=== PATIENT | male | born 1965 | race Caucasian/White ===

== ENCOUNTER 2021-01-08 18:00 | Inpatient (IN) ==
[2021-01-08] MEDS ORDERED: ONDANSETRON 4 MG/2 ML VIAL ONE (18:32)
[2021-01-08] MEDS ORDERED: SODIUM CHLORIDE 0.9% 1,000 ML IV STA (18:41)
[2021-01-08] MEDS ORDERED: MORPHINE 2 MG/1 ML SYRINGE IV STA (18:41)
[2021-01-08] MEDS ORDERED: ONDANSETRON 4 MG/2 ML VIAL IV ONE (18:41)
[2021-01-08] MEDS ORDERED: MORPHINE 2 MG/1 ML SYRINGE ONE ×2 (19:13→19:14)
[2021-01-08] MEDS ORDERED: methylPREDNISolone SOD SUC 125 MG/2 ML VIAL IV STA (19:18)
[2021-01-08] MEDS ORDERED: diphenhydrAMINE 50 MG/1 ML VIAL IV STA (19:18)
[2021-01-08] MEDS ORDERED: FAMOTIDINE 20 MG/2 ML VIAL IV STA (19:18)
[2021-01-08 19:20] LABS: Alanine Aminotransferase 78 U/L (16-61); Albumin 3.1 G/DL (3.4-5.0); Alkaline Phosphatase 126 U/L (45-117); Aspartate Amino Transferase 63 U/L (0-37); Blood Urea Nitrogen 11 MG/DL (7-18); Calcium 9.1 MG/DL (8.5-10.1); Carbon Dioxide 21 MMOL/L (21-32); Estimated Glom Filtration Rate 93 ML/MIN; Glucose 137 MG/DL (74-106); Osmolality,Calculated 277.5 MOS/KG (273-304); Potassium 3.6 MMOL/L (3.5-5.1); Sodium 139 MMOL/L (136-145); Total Protein 7.1 G/DL (6.4-8.2)
[2021-01-08 19:31] LABS: Basophils # 0.1 10*3/uL (0.0-0.2); Basophils % 1.1 % (0.0-0.8); Eosinophils # 0.1 10*3/uL (0.0-0.87); Eosinophils % 0.8 % (0.00-10.9); Hematocrit 46.4 VOL% (42.0-52.0); Hemoglobin 14.1 GM/DL (14.0-18.0); Immature Granulocytes % 0.3 %; Immature Granulocytes Absolute 0.02 #; Lymphocytes # 0.6 10*3/uL (1.4-4.0); Lymphocytes % 7.6 % (21.2-54.2); Mean Corpuscular HGB Conc 30.4 GM/DL (32-36); Mean Corpuscular Volume 92.6 FL (87-102); Monocytes % 8.8 % (1.7-12.7); Neutrophils % 81.4 % (38.7-73.9); Platelet Count 196 T/CUMM (130-400); Red Blood Count 5.01 MC/CUMM (3.8-5.5); Red Cell Distribution Width 15.6 % (9.3-17.3)
[2021-01-08] MEDS ORDERED: methylPREDNISolone SOD SUC 125 MG/2 ML VIAL ONE (19:55)
[2021-01-08] MEDS ORDERED: FAMOTIDINE 20 MG/2 ML VIAL IV ONE (19:55)
[2021-01-08] MEDS ORDERED: diphenhydrAMINE 50 MG/1 ML VIAL ONE (19:55)
[2021-01-08 19:59] LABS: INR 1.4; PT Patient Result 15.1 SECS (10.5-12.0); Partial Thromboplastin Time 34.8 SECS (23.8-32.1)
[2021-01-08] MEDS ORDERED: cefTRIAXone 1,000 MG in SODIUM CHLORIDE 0.9% 100 ML IV STA (20:47)
[2021-01-08] MEDS ORDERED: SODIUM CHLOR 0.9% KCL 20 MEQ 20 MEQ/1,000 ML BAG IV SCH (21:30)
[2021-01-08] MEDS ORDERED: cefTRIAXone 1,000 MG VIAL ONE (22:22)
[2021-01-08] MEDS ORDERED: SODIUM CHLORIDE 0.9% 100 ML IV ONE (22:24)
[2021-01-08] MEDS ORDERED: ACETAMINOPHEN 650 MG SUPP RECTAL PRN (22:25)
[2021-01-08] MEDS ORDERED: GLUCAGON 1 MG VIAL IM PRN (22:25)
[2021-01-08] MEDS ORDERED: DEXTROSE 50% 25 GM/50 ML SYRINGE IV PRN (22:25)
[2021-01-08] MEDS ORDERED: PROMETHAZINE INJ 12.5 MG in SODIUM CHLORIDE 0.9% 50 ML IV PRN (22:52)
[2021-01-09] MEDS ORDERED: ALBUTEROL/IPRATROPIUM 3 ML NEB RESP TX ONE (00:13)
[2021-01-09] MEDS: ALBUTEROL/IPRATROPIUM 3 ML NEB RESP TX SCH ×4 (00:20→20:15)
[2021-01-09] MEDS: PANTOPRAZOLE 40 MG VIAL IV SCH ×3 (00:58→21:09)
[2021-01-09] MEDS ORDERED: PANTOPRAZOLE 40 MG VIAL IV ONE (01:03)
[2021-01-09] MEDS ORDERED: MEROPENEM 1,000 MG VIAL ONE (01:04)
[2021-01-09] MEDS ORDERED: SODIUM CHLORIDE 0.9% 100 ML IV ONE (01:04)
[2021-01-09] MEDS: MEROPENEM 500 MG in SODIUM CHLORIDE 0.9% 100 ML IV SCH ×5 (01:05→23:50)
[2021-01-09] MEDS: HYDROmorphone 2 MG/1 ML VIAL IV PRN ×4 (02:13→21:08)
[2021-01-09] MEDS: ONDANSETRON 4 MG/2 ML VIAL IV PRN ×4 (02:13→21:08)
[2021-01-09] MEDS: LACTATED RINGERS 1,000 ML IV SCH ×2 (02:13→17:16)
[2021-01-09 03:02] LABS: Bilirubin,Urine Negative (Negative); Blood, Urine Small mg/dL (Negative); Calcium Oxalate Crystals,Urine Occasional /HPF (Few); Glucose,Urine (UA) Negative (Negative); Ketones,Urine 5 mg/dL (Negative); Mucus,Urine Few /LPF (Occasional); Nitrite,Urine Negative (Negative); Protein,Urine Negative; RBC,Urine 3 /HPF (0-4); Squamous Epithelial Cell,Urine Occasional /HPF (0-10); Urine Appearance CLEAR (Clear); Urine Color Yellow (Yellow); Urine Specific Gravity > 1.060 (1.001-1.035); Urine Urobilinogen < 2.0 EU/DL (0.2-1.0)
[2021-01-09 06:12] LABS: Immature Granulocytes % 0.2 %; Immature Granulocytes Absolute 0.01 #; Lymphocytes # 0.3 10*3/uL (1.4-4.0); Lymphocytes % 5.5 % (21.2-54.2); Red Cell Distribution Width 15.5 % (9.3-17.3); White Blood Count 4.5 T/CUMM (4-12)
[2021-01-09 06:17] LABS: INR 1.4; PT Patient Result 15.4 SECS (10.5-12.0)
[2021-01-09 06:32] LABS: Albumin 2.2 G/DL (3.4-5.0); Bilirubin,Total 1.2 MG/DL (0.20-1.00); Calcium 8.7 MG/DL (8.5-10.1); Osmolality,Calculated 277.7 MOS/KG (273-304); Potassium 4.5 MMOL/L (3.5-5.1); Total Protein 6.1 G/DL (6.4-8.2)
[2021-01-09 06:34] LABS: Basophils % 0.4 % (0.0-0.8); Hematocrit 40.5 VOL% (42.0-52.0); Hemoglobin 12.4 GM/DL (14.0-18.0); Mean Corpuscular HGB Conc 30.6 GM/DL (32-36); Mean Corpuscular Volume 93.5 FL (87-102); Mean Platelet Volume 12.6 FL (9.6-12.0); Monocytes % 3.5 % (1.7-12.7); Neutrophils % 90.4 % (38.7-73.9); Platelet Count 147 T/CUMM (130-400); Red Blood Count 4.33 MC/CUMM (3.8-5.5)
[2021-01-09] MEDS: VANCOMYCIN INJ 1,500 MG in SODIUM CHLORIDE 0.9% 500 ML IV SCH ×2 (09:10→21:09)
[2021-01-09 11:44] LABS: Amylase,Pleural Fluid 8 U/L; Glucose,Pleural Fluid 164 MG/DL; LDH,Pleural Fluid 105 U/L; Total Protein,Pleural Fluid 1.8 G/DL
[2021-01-09 12:02] LABS: Lymphocytes,Pleural Fluid 83 %; Neutrophils,Pleural Fluid 16 %; RBC,Pleural Fluid 3360 T/CUMM
[2021-01-10] MEDS: ALBUTEROL/IPRATROPIUM 3 ML NEB RESP TX SCH ×2 (02:05→07:55)
[2021-01-10] MEDS ORDERED: ALBUMIN 25% 25 GM/100 ML VIAL IV ONE (02:56)
[2021-01-10] MEDS: SODIUM CHLORIDE 0.9% 1,000 ML IV SCH ×2 (03:41→08:21)
[2021-01-10 05:53] LABS: Calcium 7.8 MG/DL (8.5-10.1); Osmolality,Calculated 287.7 MOS/KG (273-304); Potassium 3.7 MMOL/L (3.5-5.1)
[2021-01-10] MEDS: MEROPENEM 500 MG in SODIUM CHLORIDE 0.9% 100 ML IV SCH (06:51)
[2021-01-10] MEDS: LACTATED RINGERS 1,000 ML IV SCH (08:21)
[2021-01-10 08:57] VITALS: BP 92/50
[2021-01-10] MEDS: VANCOMYCIN INJ 1,500 MG in SODIUM CHLORIDE 0.9% 500 ML IV SCH (09:48)
[2021-01-10] MEDS: PANTOPRAZOLE 40 MG VIAL IV SCH (09:49)
[2021-01-13 14:01] LABS: CEA, Pleural Fluid < 0.5 ng/mL
[2021-01-15 10:07] LABS: Adenosine Deaminase Pleural Fl 4 U/L (0-30)
== END 2021-01-10 13:23 | disposition home or self-care (01) | DRG 947 ==
LOC: N.ED 18:00 → N.EDINP 22:25 → N.TELEN 01-09 01:40
PROVIDERS: ADMIT Internal Medicine; ATTEND Internal Medicine

== ENCOUNTER 2021-04-16 17:34 | Inpatient (IN) ==
[2021-04-16] MEDS ORDERED: PANTOPRAZOLE 40 MG VIAL IV STA (19:05)
[2021-04-16] MEDS ORDERED: ONDANSETRON 4 MG/2 ML VIAL IV STA (19:05)
[2021-04-16] MEDS ORDERED: HYDROmorphone 2 MG/1 ML VIAL IV STA (19:05)
[2021-04-16] MEDS ORDERED: SODIUM CHLORIDE 0.9% 500 ML IV STA (19:05)
[2021-04-16 19:34] LABS: Basophils % 0.5 % (0.0-0.8); Eosinophils % 0.5 % (0.00-10.9); Hematocrit 40.2 VOL% (42.0-52.0); Hemoglobin 13.1 GM/DL (14.0-18.0); Immature Granulocytes % 7.4 %; Immature Granulocytes Absolute 0.48 #; Lymphocytes # 0.7 10*3/uL (1.4-4.0); Lymphocytes % 10.6 % (21.2-54.2); Mean Corpuscular HGB Conc 32.6 GM/DL (32-36); Mean Corpuscular Volume 88.2 FL (87-102); Mean Platelet Volume 10.5 FL (9.6-12.0); Monocytes % 16.1 % (1.7-12.7); NRBC # 0.02 10*3/uL; Neutrophils % 64.9 % (38.7-73.9); Platelet Count 146 T/CUMM (130-400); Red Blood Count 4.56 MC/CUMM (3.8-5.5); White Blood Count 6.5 T/CUMM (4-12)
[2021-04-16 19:54] LABS: Alanine Aminotransferase 25 U/L (16-61); Albumin 2.1 G/DL (3.4-5.0); Alkaline Phosphatase 187 U/L (45-117); Amylase 13 U/L (25-115); Aspartate Amino Transferase 39 U/L (0-37); Blood Urea Nitrogen 17 MG/DL (7-18); Calcium 8.9 MG/DL (8.5-10.1); Carbon Dioxide 17 MMOL/L (21-32); Estimated Glom Filtration Rate 73 ML/MIN; Glucose 104 MG/DL (74-106); Potassium 3.6 MMOL/L (3.5-5.1); Sodium 136 MMOL/L (136-145); Total Protein 5.9 G/DL (6.4-8.2)
[2021-04-16] MEDS ORDERED: DOCUSATE SODIUM 100 MG CAPSULE PO PRN (20:07)
[2021-04-16] MEDS ORDERED: diphenhydrAMINE CAP 25 MG CAPSULE PO PRN (20:07)
[2021-04-16] MEDS ORDERED: guaiFENesin/DM ER 600-30 MG TABLET PO PRN (20:07)
[2021-04-16] MEDS ORDERED: hydrALAZINE 20 MG/1 ML VIAL IV PRN (20:07)
[2021-04-16] MEDS ORDERED: ALBUTEROL/IPRATROPIUM 3 ML NEB RESP TX PRN (20:07)
[2021-04-16] MEDS ORDERED: ZALEPLON 5 MG CAPSULE PO PRN (20:07)
[2021-04-16] MEDS ORDERED: GLUCAGON 1 MG VIAL IM PRN ×2 (20:07→23:44)
[2021-04-16] MEDS ORDERED: PROMETHAZINE 25 MG/1 ML VIAL IM PRN (20:07)
[2021-04-16] MEDS ORDERED: MORPHINE 2 MG/1 ML SYRINGE IV PRN (20:07)
[2021-04-16] MEDS ORDERED: ACETAMINOPHEN 325 MG TABLET PO PRN (20:07)
[2021-04-16] MEDS ORDERED: NICOTINE 21 MG/24 HR PATCH TRANSDERM PRN (20:07)
[2021-04-16] MEDS ORDERED: DEXTROSE 10% 250 ML BAG IV PRN (20:11)
[2021-04-16 20:19] LABS: Anisocytosis Slight; Atypical Lymphocytes Few; Band Neutrophils 15 % (0-10); Eosinophils 1 % (0-10); Lymphocytes 20 % (20-55); Metamyelocytes 2 %; Microcytosis Slight; Nucleated Red Blood Cells 1 (0-5); Platelet Estimate Adequate; Schistocytes Few; Segmented Neutrophils 52 % (50-85); Total Cells Counted 100
[2021-04-16 20:20] LABS: Burr Cells Few; Dohle Bodies 2+; Elliptocytes Few; Poikilocytosis 1+; Polychromasia Few; Toxic Granulation 2+
[2021-04-16] MEDS ORDERED: MEROPENEM 2,000 MG in SODIUM CHLORIDE 0.9% 100 ML IV SCH (20:30)
[2021-04-16] MEDS ORDERED: MEROPENEM 500 MG in SODIUM CHLORIDE 0.9% 100 ML IV SCH (21:00)
[2021-04-16] MEDS: HEPARIN 5,000 UNIT/1 ML VIAL SUBCUT SCH (21:26)
[2021-04-16] MEDS ORDERED: VANCOMYCIN INJ 1,000 MG in SODIUM CHLORIDE 0.9% 250 ML IV SCH (22:00)
[2021-04-16] MEDS ORDERED: MORPHINE 4 MG/1 ML VIAL ONE (22:18)
[2021-04-16] MEDS ORDERED: SODIUM CHLORIDE 0.9% 1,000 ML IV ONE (23:42)
[2021-04-16] MEDS ORDERED: PROMETHAZINE 25 MG TABLET PO PRN (23:43)
[2021-04-16] MEDS ORDERED: LORATADINE 10 MG TABLET PO PRN (23:43)
[2021-04-16] MEDS ORDERED: DEXTROSE 50% 25 GM/50 ML VIAL IV PRN (23:44)
[2021-04-17] MEDS: MEROPENEM 500 MG in SODIUM CHLORIDE 0.9% 100 ML IV SCH ×4 (03:57→20:25)
[2021-04-17] MEDS: ONDANSETRON 4 MG/2 ML VIAL IV PRN ×4 (04:06→20:28)
[2021-04-17 05:23] LABS: Basophils % 0.3 % (0.0-0.8); Eosinophils # 0.1 10*3/uL (0.0-0.87); Eosinophils % 0.8 % (0.00-10.9); Hematocrit 36.8 VOL% (42.0-52.0); Hemoglobin 11.9 GM/DL (14.0-18.0); Immature Granulocytes % 8.7 %; Immature Granulocytes Absolute 0.79 #; Lymphocytes # 1.1 10*3/uL (1.4-4.0); Lymphocytes % 11.7 % (21.2-54.2); Mean Corpuscular HGB Conc 32.3 GM/DL (32-36); Mean Corpuscular Volume 88.7 FL (87-102); Mean Platelet Volume 10.8 FL (9.6-12.0); Neutrophils % 64.5 % (38.7-73.9); Platelet Count 128 T/CUMM (130-400); Red Blood Count 4.15 MC/CUMM (3.8-5.5)
[2021-04-17] MEDS: MORPHINE 4 MG/1 ML VIAL IV PRN ×4 (05:43→20:31)
[2021-04-17] MEDS: INSULIN LISPRO 100 UNIT/ML SUBCUT SCH ×3 (05:56→22:39)
[2021-04-17 06:01] LABS: Calcium 8.7 MG/DL (8.5-10.1); Potassium 3.1 MMOL/L (3.5-5.1)
[2021-04-17 06:04] LABS: Acanthocytes 1+; Lymphocytes 23 % (20-55); Platelet Estimate Decreased; Polychromasia 1+; Segmented Neutrophils 63 % (50-85); Total Cells Counted 100
[2021-04-17] MEDS ORDERED: MAGNESIUM SULF RIDER 2 GM/50 ML PREMIX IV ONE (07:30)
[2021-04-17 08:27] LABS: INR 1.4; PT Patient Result 14.8 SECS (10.5-12.0)
[2021-04-17] MEDS: HEPARIN 5,000 UNIT/1 ML VIAL SUBCUT SCH ×2 (08:27→20:32)
[2021-04-17] MEDS: HEPARIN LOCK FLUSH 500 UNIT/5 ML SYRINGE IV SCH ×2 (10:07→20:39)
[2021-04-17 10:30] LABS: Calcium Oxalate Crystals,Urine Occasional /HPF (Few); Hyaline Casts,Urine 12 /LPF (0-3); Mucus,Urine Many /LPF (Occasional); RBC,Urine 2 /HPF (0-4); Squamous Epithelial Cell,Urine Occasional /HPF (0-10); Urine Appearance Clear (Clear); Urine Color Dark Yellow (Yellow)
[2021-04-17 10:31] LABS: Glucose,Urine (UA) Negative (Negative); Protein,Urine 100 MG/DL; Urine Specific Gravity 1.031 (1.001-1.035)
[2021-04-17 10:32] LABS: Bilirubin,Urine Large mg/dL (Negative); Blood, Urine Negative (Negative); Ketones,Urine 2+ mg/dL (Negative); Nitrite,Urine Negative (Negative); Urine Urobilinogen 0.2 EU/DL (<2.0)
[2021-04-17] MEDS ORDERED: SODIUM CHLORIDE 0.9% 1,000 ML IV ONE (11:00)
[2021-04-18] MEDS: INSULIN LISPRO 100 UNIT/ML SUBCUT SCH ×4 (01:22→18:33)
[2021-04-18] MEDS: MORPHINE 4 MG/1 ML VIAL IV PRN ×4 (02:10→22:55)
[2021-04-18] MEDS: ONDANSETRON 4 MG/2 ML VIAL IV PRN ×3 (02:12→22:54)
[2021-04-18] MEDS: MEROPENEM 500 MG in SODIUM CHLORIDE 0.9% 100 ML IV SCH ×4 (03:00→22:55)
[2021-04-18] MEDS: HEPARIN 5,000 UNIT/1 ML VIAL SUBCUT SCH ×2 (09:13→22:54)
[2021-04-18] MEDS: HEPARIN LOCK FLUSH 500 UNIT/5 ML SYRINGE IV SCH (09:14)
[2021-04-18 12:17] LABS: Calcium 9.1 MG/DL (8.5-10.1); Osmolality,Calculated 284.3 MOS/KG (273-304)
[2021-04-18 12:18] LABS: Potassium 2.3 MMOL/L (3.5-5.1)
[2021-04-18] MEDS ORDERED: LOPERAMIDE 2 MG CAPSULE PO PRN (12:23)
[2021-04-18 12:26] LABS: Basophils # 0.1 10*3/uL (0.0-0.2); Basophils % 0.4 % (0.0-0.8); Eosinophils # 0.2 10*3/uL (0.0-0.87); Eosinophils % 0.6 % (0.00-10.9); Hematocrit 38.8 VOL% (42.0-52.0); Hemoglobin 12.7 GM/DL (14.0-18.0); Immature Granulocytes % 11.5 %; Immature Granulocytes Absolute 3.09 #; Lymphocytes # 0.9 10*3/uL (1.4-4.0); Lymphocytes % 3.4 % (21.2-54.2); Mean Corpuscular HGB Conc 32.7 GM/DL (32-36); Mean Corpuscular Volume 88.2 FL (87-102); Mean Platelet Volume 9.9 FL (9.6-12.0); Monocytes % 12.7 % (1.7-12.7); NRBC # 0.05 10*3/uL; Neutrophils % 71.4 % (38.7-73.9); Platelet Count 146 T/CUMM (130-400); Red Cell Distribution Width 25.9 % (9.3-17.3); White Blood Count 26.9 T/CUMM (4-12)
[2021-04-18 12:37] LABS: Band Neutrophils 8 % (0-10); Lymphocytes 2 % (20-55); Metamyelocytes 6 %; Myelocytes 1 %; Segmented Neutrophils 78 % (50-85); Total Cells Counted 100
[2021-04-18 12:38] LABS: Anisocytosis 2+; Dohle Bodies 2+; Hypochromia Slight; Macrocytosis 1+; Microcytosis 2+; Toxic Granulation 2+
[2021-04-18 12:39] LABS: Burr Cells 1+; Elliptocytes Few; Platelet Estimate Adequate; Poikilocytosis 1+; Polychromasia 1+; Schistocytes Slight
[2021-04-18] MEDS: POTASSIUM CHLORIDE 20 MEQ TABLET PO PRN ×4 (12:56→22:54)
[2021-04-18] MEDS ORDERED: LOPERAMIDE 2 MG CAPSULE PO ONE (14:14)
[2021-04-18] MEDS: VANCOMYCIN INJ 1,000 MG in SODIUM CHLORIDE 0.9% 250 ML IV SCH (15:12)
[2021-04-18] MEDS: SPIRONOLACTONE 50 MG TABLET PO SCH (15:12)
[2021-04-18] MEDS: LIPASE/PROTEASE/AMYLASE 4,200 UNITS CAPSULE PO SCH (16:23)
[2021-04-19] MEDS: HEPARIN LOCK FLUSH 500 UNIT/5 ML SYRINGE IV SCH ×3 (00:13→21:14)
[2021-04-19] MEDS: VANCOMYCIN INJ 1,000 MG in SODIUM CHLORIDE 0.9% 250 ML IV SCH ×2 (01:42→13:54)
[2021-04-19] MEDS: INSULIN LISPRO 100 UNIT/ML SUBCUT SCH ×4 (01:45→17:34)
[2021-04-19] MEDS: MEROPENEM 500 MG in SODIUM CHLORIDE 0.9% 100 ML IV SCH ×4 (02:52→21:12)
[2021-04-19 06:28] LABS: Basophils # 0.1 10*3/uL (0.0-0.2); Basophils % 0.4 % (0.0-0.8); Eosinophils # 0.2 10*3/uL (0.0-0.87); Eosinophils % 0.5 % (0.00-10.9); Hematocrit 39.5 VOL% (42.0-52.0); Hemoglobin 12.7 GM/DL (14.0-18.0); Immature Granulocytes % 10.9 %; Immature Granulocytes Absolute 3.53 #; Lymphocytes # 1.6 10*3/uL (1.4-4.0); Lymphocytes % 4.8 % (21.2-54.2); Mean Corpuscular HGB Conc 32.2 GM/DL (32-36); Mean Corpuscular Volume 90.8 FL (87-102); Mean Platelet Volume 10.4 FL (9.6-12.0); Neutrophils % 72.4 % (38.7-73.9); Platelet Count 186 T/CUMM (130-400); Red Blood Count 4.35 MC/CUMM (3.8-5.5); Red Cell Distribution Width 26.8 % (9.3-17.3); White Blood Count 32.5 T/CUMM (4-12)
[2021-04-19 06:49] LABS: Band Neutrophils 2 % (0-10); Eosinophils 1 % (0-10); Hypochromia Slight; Lymphocytes 8 % (20-55); Microcytosis Slight; Platelet Estimate Adequate; Segmented Neutrophils 85 % (50-85); Total Cells Counted 100
[2021-04-19 07:03] LABS: Calcium 9.7 MG/DL (8.5-10.1); Osmolality,Calculated 286.8 MOS/KG (273-304); Potassium 2.7 MMOL/L (3.5-5.1)
[2021-04-19] MEDS ORDERED: FUROSEMIDE 20 MG TABLET PO SCH (09:00)
[2021-04-19] MEDS: POTASSIUM CHLORIDE 20 MEQ TABLET PO PRN ×2 (09:11→17:55)
[2021-04-19] MEDS: SPIRONOLACTONE 50 MG TABLET PO SCH (09:11)
[2021-04-19] MEDS: LIPASE/PROTEASE/AMYLASE 4,200 UNITS CAPSULE PO SCH ×3 (09:11→17:56)
[2021-04-19] MEDS: HEPARIN 5,000 UNIT/1 ML VIAL SUBCUT SCH ×2 (09:15→21:06)
[2021-04-19] MEDS: LOPERAMIDE 2 MG CAPSULE PO SCH (21:08)
[2021-04-19] MEDS: ONDANSETRON 4 MG/2 ML VIAL IV PRN (21:08)
[2021-04-19] MEDS: MORPHINE 4 MG/1 ML VIAL IV PRN (21:12)
[2021-04-19] MEDS: CHOLESTYRAMINE 4 GM PACK PO SCH (21:14)
[2021-04-20] MEDS: INSULIN LISPRO 100 UNIT/ML SUBCUT SCH ×4 (01:20→18:47)
[2021-04-20] MEDS: VANCOMYCIN INJ 1,000 MG in SODIUM CHLORIDE 0.9% 250 ML IV SCH ×2 (02:13→16:11)
[2021-04-20] MEDS: MEROPENEM 500 MG in SODIUM CHLORIDE 0.9% 100 ML IV SCH ×4 (03:30→21:31)
[2021-04-20 06:41] LABS: Basophils # 0.1 10*3/uL (0.0-0.2); Basophils % 0.4 % (0.0-0.8); Eosinophils # 0.2 10*3/uL (0.0-0.87); Eosinophils % 0.7 % (0.00-10.9); Hematocrit 36.7 VOL% (42.0-52.0); Hemoglobin 11.8 GM/DL (14.0-18.0); Immature Granulocytes % 11.7 %; Immature Granulocytes Absolute 3.33 #; Lymphocytes # 1.4 10*3/uL (1.4-4.0); Mean Corpuscular HGB Conc 32.2 GM/DL (32-36); Mean Corpuscular Volume 90.2 FL (87-102); Mean Platelet Volume 9.3 FL (9.6-12.0); Monocytes % 9.3 % (1.7-12.7); NRBC # 0.05 10*3/uL; Neutrophils % 72.9 % (38.7-73.9); Platelet Count 152 T/CUMM (130-400); Red Blood Count 4.07 MC/CUMM (3.8-5.5); Red Cell Distribution Width 27.6 % (9.3-17.3); White Blood Count 28.6 T/CUMM (4-12)
[2021-04-20 07:02] LABS: Eosinophils 2 % (0-10); Lymphocytes 7 % (20-55); Platelet Estimate Adequate; Segmented Neutrophils 81 % (50-85); Total Cells Counted 100
[2021-04-20 07:06] LABS: Calcium 9.8 MG/DL (8.5-10.1); Osmolality,Calculated 282.1 MOS/KG (273-304)
[2021-04-20] MEDS: LOPERAMIDE 2 MG CAPSULE PO SCH ×2 (09:24→21:30)
[2021-04-20] MEDS: POTASSIUM CHLORIDE 20 MEQ TABLET PO SCH ×2 (09:25→12:56)
[2021-04-20] MEDS: LIPASE/PROTEASE/AMYLASE 4,200 UNITS CAPSULE PO SCH ×3 (09:25→17:07)
[2021-04-20] MEDS: SODIUM BICARBONATE 650 MG TABLET PO SCH ×2 (09:26→21:30)
[2021-04-20] MEDS: HEPARIN LOCK FLUSH 500 UNIT/5 ML SYRINGE IV SCH (09:26)
[2021-04-20] MEDS: HEPARIN 5,000 UNIT/1 ML VIAL SUBCUT SCH ×2 (09:26→21:29)
[2021-04-20] MEDS: CHOLESTYRAMINE 4 GM PACK PO SCH ×2 (09:37→21:30)
[2021-04-20] MEDS: MORPHINE 4 MG/1 ML VIAL IV PRN ×2 (16:05→21:29)
[2021-04-20] MEDS: ONDANSETRON 4 MG/2 ML VIAL IV PRN (21:30)
[2021-04-21] MEDS: INSULIN LISPRO 100 UNIT/ML SUBCUT SCH ×5 (02:25→23:50)
[2021-04-21] MEDS: HEPARIN LOCK FLUSH 500 UNIT/5 ML SYRINGE IV SCH ×2 (02:26→11:20)
[2021-04-21] MEDS: MORPHINE 4 MG/1 ML VIAL IV PRN ×2 (03:36→20:47)
[2021-04-21] MEDS: MEROPENEM 500 MG in SODIUM CHLORIDE 0.9% 100 ML IV SCH ×3 (03:36→15:40)
[2021-04-21] MEDS: ONDANSETRON 4 MG/2 ML VIAL IV PRN ×2 (03:36→13:25)
[2021-04-21 05:06] LABS: Basophils # 0.2 10*3/uL (0.0-0.2); Basophils % 0.4 % (0.0-0.8); Eosinophils # 0.2 10*3/uL (0.0-0.87); Eosinophils % 0.7 % (0.00-10.9); Hematocrit 41.8 VOL% (42.0-52.0); Immature Granulocytes % 8.1 %; Immature Granulocytes Absolute 2.76 #; Lymphocytes # 1.8 10*3/uL (1.4-4.0); Lymphocytes % 5.2 % (21.2-54.2); Mean Corpuscular HGB Conc 31.1 GM/DL (32-36); Mean Corpuscular Volume 92.3 FL (87-102); Mean Platelet Volume 9.5 FL (9.6-12.0); Monocytes % 7.1 % (1.7-12.7); NRBC # 0.04 10*3/uL; Neutrophils % 78.5 % (38.7-73.9); Platelet Count 177 T/CUMM (130-400); Red Blood Count 4.53 MC/CUMM (3.8-5.5); Red Cell Distribution Width 28.1 % (9.3-17.3); White Blood Count 34.3 T/CUMM (4-12)
[2021-04-21 05:29] LABS: Hypochromia Slight; Lymphocytes 6 % (20-55); Microcytosis Slight; Platelet Estimate Adequate; Segmented Neutrophils 88 % (50-85); Total Cells Counted 100
[2021-04-21 05:35] LABS: Albumin 1.9 G/DL (3.4-5.0); Bilirubin,Total 0.9 MG/DL (0.20-1.00); Calcium 9.5 MG/DL (8.5-10.1); Osmolality,Calculated 289.6 MOS/KG (273-304); Total Protein 5.7 G/DL (6.4-8.2)
[2021-04-21] MEDS: SODIUM BICARBONATE 650 MG TABLET PO SCH ×2 (09:39→20:47)
[2021-04-21] MEDS: CHOLESTYRAMINE 4 GM PACK PO SCH ×2 (09:40→21:13)
[2021-04-21] MEDS: POTASSIUM CHLORIDE 20 MEQ TABLET PO SCH ×4 (09:40→20:47)
[2021-04-21] MEDS: LIPASE/PROTEASE/AMYLASE 4,200 UNITS CAPSULE PO SCH ×3 (09:40→16:20)
[2021-04-21] MEDS: LOPERAMIDE 2 MG CAPSULE PO SCH ×2 (09:40→20:47)
[2021-04-21] MEDS: HEPARIN 5,000 UNIT/1 ML VIAL SUBCUT SCH ×2 (09:40→20:46)
[2021-04-21] MEDS: METOCLOPRAMIDE 5 MG TABLET PO SCH ×2 (11:20→15:40)
[2021-04-21] MEDS ORDERED: DEXTROSE 5% 1,000 ML IV SCH (13:30)
[2021-04-22 06:52] LABS: Basophils # 0.2 10*3/uL (0.0-0.2); Basophils % 0.6 % (0.0-0.8); Eosinophils # 0.3 10*3/uL (0.0-0.87); Hematocrit 35.6 VOL% (42.0-52.0); Hemoglobin 11.5 GM/DL (14.0-18.0); Immature Granulocytes % 4.5 %; Lymphocytes # 1.4 10*3/uL (1.4-4.0); Lymphocytes % 5.8 % (21.2-54.2); Mean Corpuscular HGB Conc 32.3 GM/DL (32-36); Mean Corpuscular Volume 91.3 FL (87-102); Mean Platelet Volume 9.6 FL (9.6-12.0); Monocytes % 8.1 % (1.7-12.7); NRBC # 0.02 10*3/uL; Red Cell Distribution Width 27.6 % (9.3-17.3); White Blood Count 24.2 T/CUMM (4-12)
[2021-04-22 06:53] LABS: Platelet Count 140 T/CUMM (130-400)
[2021-04-22] MEDS: INSULIN LISPRO 100 UNIT/ML SUBCUT SCH ×2 (07:02→12:35)
[2021-04-22 07:11] LABS: Anisocytosis 2+; Band Neutrophils 19 % (0-10); Eosinophils 2 % (0-10); Lymphocytes 15 % (20-55); Ovalocytes Few; Platelet Estimate Adequate; Segmented Neutrophils 58 % (50-85); Total Cells Counted 100
[2021-04-22 07:12] LABS: Burr Cells Few
[2021-04-22 07:25] LABS: Albumin 1.5 G/DL (3.4-5.0); Bilirubin,Total 0.5 MG/DL (0.20-1.00); Calcium 8.7 MG/DL (8.5-10.1); Osmolality,Calculated 278.5 MOS/KG (273-304); Potassium 3.9 MMOL/L (3.5-5.1); Total Protein 4.6 G/DL (6.4-8.2)
[2021-04-22] MEDS: LIPASE/PROTEASE/AMYLASE 4,200 UNITS CAPSULE PO SCH ×2 (09:23→13:06)
[2021-04-22] MEDS: SODIUM BICARBONATE 650 MG TABLET PO SCH (09:23)
[2021-04-22] MEDS: CHOLESTYRAMINE 4 GM PACK PO SCH (09:23)
[2021-04-22] MEDS: POTASSIUM CHLORIDE 20 MEQ TABLET PO SCH (09:23)
[2021-04-22] MEDS: LOPERAMIDE 2 MG CAPSULE PO SCH (09:23)
[2021-04-22] MEDS: HEPARIN 5,000 UNIT/1 ML VIAL SUBCUT SCH (09:24)
[2021-04-22 12:46] VITALS: BP 84/53
== END 2021-04-22 13:59 | disposition home health service (06) | DRG 435 ==
LOC: N.ED 17:34 → SUATTDRO 20:07 → N.TELES 20:07
PROVIDERS: ADMIT Internal Medicine; ATTEND Hospitalist

== ENCOUNTER 2021-07-19 11:23 | Inpatient (IN) ==
[2021-07-19] MEDS ORDERED: SODIUM CHLORIDE 0.9% 1,000 ML IV STA (14:07)
[2021-07-19] MEDS ORDERED: ONDANSETRON 4 MG/2 ML VIAL IV STA (14:07)
[2021-07-19] MEDS ORDERED: DEXAMETHASONE 4 MG/1 ML VIAL IV STA (14:11)
[2021-07-19 14:38] LABS: Basophils # 0.1 10*3/uL (0.0-0.2); Basophils % 0.6 % (0.0-0.8); Eosinophils % 0.1 % (0.00-10.9); Hematocrit 39.2 VOL% (42.0-52.0); Hemoglobin 13.2 GM/DL (14.0-18.0); Immature Granulocytes % 0.4 %; Immature Granulocytes Absolute 0.04 #; Lymphocytes # 0.6 10*3/uL (1.4-4.0); Lymphocytes % 6.9 % (21.2-54.2); Mean Corpuscular HGB Conc 33.7 GM/DL (32-36); Mean Corpuscular Volume 96.8 FL (87-102); Mean Platelet Volume 10.1 FL (9.6-12.0); Monocytes % 10.5 % (1.7-12.7); Neutrophils % 81.5 % (38.7-73.9); Platelet Count 131 T/CUMM (130-400); Red Blood Count 4.05 MC/CUMM (3.8-5.5); Red Cell Distribution Width 15.8 % (9.3-17.3)
[2021-07-19 14:55] LABS: Alanine Aminotransferase 40 U/L (16-61); Alkaline Phosphatase 130 U/L (45-117); Amylase 28 U/L (25-115); Aspartate Amino Transferase 48 U/L (0-37); Blood Urea Nitrogen 24 MG/DL (7-18); Calcium 8.2 MG/DL (8.5-10.1); Carbon Dioxide 21 MMOL/L (21-32); Chloride 105 MMOL/L (98-107); Glucose 101 MG/DL (74-106); Osmolality,Calculated 269.4 MOS/KG (273-304); Potassium 4.2 MMOL/L (3.5-5.1); Sodium 133 MMOL/L (136-145); Total Protein 6.1 G/DL (6.4-8.2)
[2021-07-19] MEDS ORDERED: HYDROmorphone 1 MG/1 ML SYRINGE IV STA (15:23)
[2021-07-19] MEDS ORDERED: HYDROmorphone 1 MG/1 ML SYRINGE ONE (15:24)
[2021-07-19] MEDS ORDERED: ONDANSETRON 4 MG/2 ML VIAL IV PRN (16:36)
[2021-07-19] MEDS ORDERED: ALBUTEROL 2.5 MG/3 ML NEB RESP TX PRN (16:36)
[2021-07-19] MEDS ORDERED: MAGNESIUM SULF RIDER 2 GM/50 ML PREMIX IV PRN (16:50)
[2021-07-19] MEDS ORDERED: MAGNESIUM SULF RIDER 4 GM/100 ML PREMIX IV PRN (16:50)
[2021-07-19] MEDS ORDERED: GLUCAGON 1 MG VIAL IM PRN (16:54)
[2021-07-19] MEDS ORDERED: DEXTROSE 10% 250 ML BAG IV PRN (17:00)
[2021-07-19] MEDS: SODIUM CHLORIDE 0.9% 1,000 ML IV SCH (17:20)
[2021-07-19] MEDS: cefTRIAXone 1,000 MG in SODIUM CHLORIDE 0.9% 100 ML IV SCH (17:20)
[2021-07-19] MEDS ORDERED: ALBUMIN 25% 25 GM/100 ML VIAL IV ONE (18:00)
[2021-07-19] MEDS: MORPHINE 2 MG/1 ML SYRINGE IV PRN ×2 (18:05→22:14)
[2021-07-19 18:27] LABS: INR 1.3; PT Patient Result 13.6 SECS (10.5-12.0); Partial Thromboplastin Time 30.2 SECS (23.8-32.1)
[2021-07-19] MEDS: INSULIN LISPRO 100 UNIT/ML SUBCUT SCH (22:05)
[2021-07-20] MEDS: SODIUM CHLORIDE 0.9% 1,000 ML IV SCH ×3 (01:20→21:29)
[2021-07-20] MEDS: MORPHINE 2 MG/1 ML SYRINGE IV PRN ×2 (03:05→08:32)
[2021-07-20 05:21] LABS: Hematocrit 31.8 VOL% (42.0-52.0); Hemoglobin 10.7 GM/DL (14.0-18.0); Immature Granulocytes % 0.6 %; Immature Granulocytes Absolute 0.05 #; Lymphocytes # 0.2 10*3/uL (1.4-4.0); Lymphocytes % 2.7 % (21.2-54.2); Mean Corpuscular HGB Conc 33.6 GM/DL (32-36); Mean Corpuscular Volume 98.5 FL (87-102); Mean Platelet Volume 11.1 FL (9.6-12.0); Monocytes # 0.8 10*3/uL (0.11-0.8); Monocytes % 8.9 % (1.7-12.7); Neutrophils % 87.8 % (38.7-73.9); Platelet Count 96 T/CUMM (130-400); Red Blood Count 3.23 MC/CUMM (3.8-5.5); Red Cell Distribution Width 15.6 % (9.3-17.3); White Blood Count 8.7 T/CUMM (4-12)
[2021-07-20 05:38] LABS: Albumin 1.9 G/DL (3.4-5.0); Bilirubin,Direct 0.23 MG/DL (0.0-0.20); Bilirubin,Indirect 0.3 MG/DL (0.0-1.0); Bilirubin,Total 0.5 MG/DL (0.20-1.00); Calcium 7.9 MG/DL (8.5-10.1); Osmolality,Calculated 280.1 MOS/KG (273-304); Potassium 4.5 MMOL/L (3.5-5.1); Total Protein 5.2 G/DL (6.4-8.2)
[2021-07-20 05:43] LABS: Band Neutrophils 1 % (0-10); Lymphocytes 1 % (20-55); Total Cells Counted 100
[2021-07-20 05:44] LABS: Microcytosis Slight; Ovalocytes Slight
[2021-07-20 05:45] LABS: Platelet Estimate Decreased
[2021-07-20] MEDS: INSULIN LISPRO 100 UNIT/ML SUBCUT SCH ×4 (08:31→21:14)
[2021-07-20] MEDS ORDERED: PANTOPRAZOLE 40 MG TABLET PO SCH (09:00)
[2021-07-20] MEDS: HYDROmorphone 1 MG/1 ML SYRINGE IV PRN ×2 (10:05→19:30)
[2021-07-20] MEDS ORDERED: ALBUMIN 25% 12.5 GM/50 ML VIAL IV ONE (14:25)
[2021-07-20 14:51] VITALS: BP 86/61
[2021-07-20] MEDS: cefTRIAXone 1,000 MG in SODIUM CHLORIDE 0.9% 100 ML IV SCH (17:01)
[2021-07-21] MEDS: HYDROmorphone 1 MG/1 ML SYRINGE IV PRN ×2 (00:05→03:13)
[2021-07-21] MEDS: SODIUM CHLORIDE 0.9% 1,000 ML IV SCH (03:44)
[2021-07-21 05:04] LABS: Basophils % 0.2 % (0.0-0.8); Eosinophils # 0.1 10*3/uL (0.0-0.87); Eosinophils % 1.2 % (0.00-10.9); Hematocrit 32.3 VOL% (42.0-52.0); Hemoglobin 10.6 GM/DL (14.0-18.0); Immature Granulocytes % 0.3 %; Immature Granulocytes Absolute 0.02 #; Lymphocytes # 0.6 10*3/uL (1.4-4.0); Lymphocytes % 9.7 % (21.2-54.2); Mean Corpuscular HGB Conc 32.8 GM/DL (32-36); Mean Corpuscular Volume 99.4 FL (87-102); Mean Platelet Volume 11.1 FL (9.6-12.0); Monocytes # 0.6 10*3/uL (0.11-0.8); Monocytes % 9.7 % (1.7-12.7); Neutrophils % 78.9 % (38.7-73.9); Platelet Count 91 T/CUMM (130-400); Red Blood Count 3.25 MC/CUMM (3.8-5.5); Red Cell Distribution Width 15.9 % (9.3-17.3); White Blood Count 5.9 T/CUMM (4-12)
[2021-07-21 05:17] LABS: Calcium 7.4 MG/DL (8.5-10.1); Osmolality,Calculated 285.3 MOS/KG (273-304); Potassium 4.2 MMOL/L (3.5-5.1)
[2021-07-21 05:19] LABS: Alanine Aminotransferase 26 U/L (16-61); Albumin 1.8 G/DL (3.4-5.0); Alkaline Phosphatase 95 U/L (45-117); Aspartate Amino Transferase 25 U/L (0-37); Bilirubin,Total < 0.39 MG/DL (0.20-1.00); Blood Urea Nitrogen 24 MG/DL (7-18); Calcium 7.6 MG/DL (8.5-10.1); Carbon Dioxide 20 MMOL/L (21-32); Chloride 113 MMOL/L (98-107); Glucose 118 MG/DL (74-106); Osmolality,Calculated 281.5 MOS/KG (273-304); Sodium 139 MMOL/L (136-145); Total Protein 4.8 G/DL (6.4-8.2)
[2021-07-21] MEDS: INSULIN LISPRO 100 UNIT/ML SUBCUT SCH (10:25)
[2021-07-21 12:58] LABS: LDH,Peritoneal Fluid 23 U/L
[2021-07-21 13:36] LABS: Neutrophils,Peritoneal Fluid 8 %
[2021-07-21 13:38] LABS: RBC,Peritoneal Fluid < 1 T/CUMM
== END 2021-07-21 12:40 | disposition home or self-care (01) | DRG 442 ==
LOC: N.ED 11:23 → SUATTDRO 16:36 → N.EDINP 16:36 → N.ICU 17:38
PROVIDERS: ADMIT Internal Medicine; ATTEND Internal Medicine

== ENCOUNTER 2021-11-09 07:01 | Inpatient (IN) ==
[2021-11-06 15:28] LABS: Basophils # 0.1 10*3/uL (0.0-0.2); Basophils % 0.8 % (0.0-0.8); Eosinophils # 0.1 10*3/uL (0.0-0.87); Eosinophils % 2.3 % (0.00-10.9); Hematocrit 29.6 VOL% (42.0-52.0); Hemoglobin 9.7 GM/DL (14.0-18.0); Immature Granulocytes % 0.3 %; Immature Granulocytes Absolute 0.02 #; Lymphocytes # 0.6 10*3/uL (1.4-4.0); Lymphocytes % 9.5 % (21.2-54.2); Mean Corpuscular HGB Conc 32.8 GM/DL (32-36); Mean Corpuscular Volume 98.7 FL (87-102); Mean Platelet Volume 10.9 FL (9.6-12.0); Monocytes # 0.7 10*3/uL (0.11-0.8); Monocytes % 11.2 % (1.7-12.7); Neutrophils % 75.9 % (38.7-73.9); Platelet Count 106 T/CUMM (130-400); Red Cell Distribution Width 13.5 % (9.3-17.3)
[2021-11-06 15:40] LABS: INR 1.1; PT Patient Result 11.9 SECS (10.1-12.1)
[2021-11-06 15:44] LABS: Calcium 8.2 MG/DL (8.5-10.1); Osmolality,Calculated 277.8 MOS/KG (273-304); Potassium 4.6 MMOL/L (3.5-5.1)
[~2021-11-09 07:01] MED LIST: VANCOMYCIN INJ 500 MG in SODIUM CHLORIDE 0.9% 100 ML IV ONE
[2021-11-09] MEDS ORDERED: LIDOCAINE 2% 5 ML VIAL ONE (08:36)
[2021-11-09] MEDS ORDERED: SUCCINYLCHOLINE 200 MG/10 ML VIAL ONE (08:36)
[2021-11-09] MEDS ORDERED: MIDAZOLAM 2 MG/2 ML VIAL ONE (08:36)
[2021-11-09] MEDS ORDERED: propofoL 200 MG/20 ML VIAL IV ONE (08:36)
[2021-11-09] MEDS ORDERED: fentaNYL 100 MCG/2 ML VIAL ONE (08:36)
[2021-11-09] MEDS ORDERED: ROCURONIUM 50 MG/5 ML VIAL IV ONE (08:36)
[2021-11-09] MEDS ORDERED: ONDANSETRON 4 MG/2 ML VIAL ONE (08:39)
[2021-11-09] MEDS ORDERED: BUPIVACAINE 0.5% 50 ML VIAL ONE (08:56)
[2021-11-09] MEDS ORDERED: VANCOMYCIN 500 MG VIAL ONE (08:56)
[2021-11-09] MEDS ORDERED: LACTATED RINGERS 1,000 ML IV SCH (09:00)
[2021-11-09] MEDS ORDERED: PHENYLEPHRINE 10 MG/1 ML VIAL IV ONE (09:43)
[2021-11-09] MEDS ORDERED: PHENYLEPHRINE 1 MG/10 ML SYRINGE IV ONE (09:59)
[2021-11-09] MEDS ORDERED: SEVOFLURANE 1 UNIT/15 MINUTE INH ONE (10:00)
[2021-11-09] MEDS ORDERED: ONDANSETRON 4 MG/2 ML VIAL IV PRN ×2 (10:26→10:47)
[2021-11-09] MEDS ORDERED: PROMETHAZINE 25 MG TABLET PO PRN (10:33)
[2021-11-09] MEDS: HYDROmorphone 1 MG/1 ML SYRINGE IV PRN ×3 (10:50→22:08)
[2021-11-09] MEDS ORDERED: ONDANSETRON 4 MG TABLET PO PRN (11:26)
[2021-11-09] MEDS ORDERED: oxyCODONE IR 5 MG TABLET PO PRN (15:00)
[2021-11-09] MEDS ORDERED: HYDROmorphone 1 MG/1 ML SYRINGE IV ONE (15:43)
[2021-11-09] MEDS ORDERED: PANTOPRAZOLE 40 MG TABLET PO SCH (21:00)
[2021-11-10] MEDS: HYDROmorphone 1 MG/1 ML SYRINGE IV PRN ×4 (01:15→09:59)
[2021-11-10 04:51] LABS: Basophils % 0.7 % (0.0-0.8); Eosinophils # 0.1 10*3/uL (0.0-0.87); Eosinophils % 2.7 % (0.00-10.9); Hematocrit 28.9 VOL% (42.0-52.0); Hemoglobin 9.2 GM/DL (14.0-18.0); Immature Granulocytes % 0.2 %; Immature Granulocytes Absolute 0.01 #; Lymphocytes # 0.4 10*3/uL (1.4-4.0); Lymphocytes % 7.8 % (21.2-54.2); Mean Corpuscular HGB Conc 31.8 GM/DL (32-36); Mean Corpuscular Volume 101.8 FL (87-102); Mean Platelet Volume 10.3 FL (9.6-12.0); Monocytes # 0.4 10*3/uL (0.11-0.8); Monocytes % 9.6 % (1.7-12.7); Platelet Count 86 T/CUMM (130-400); Red Blood Count 2.84 MC/CUMM (3.8-5.5); Red Cell Distribution Width 13.5 % (9.3-17.3); White Blood Count 4.5 T/CUMM (4-12)
[2021-11-10 05:09] LABS: Calcium 7.8 MG/DL (8.5-10.1); Osmolality,Calculated 285.1 MOS/KG (273-304); Potassium 4.2 MMOL/L (3.5-5.1)
[2021-11-10 08:13] VITALS: BP 95/54
[2021-11-11] MEDS ORDERED: fentaNYL 25 MCG/HR PATCH TRANSDERM SCH (18:00)
== END 2021-11-10 11:04 | disposition home or self-care (01) | DRG 406 ==
LOC: N.SDSINP 07:01 → N.OR 07:01 → EDSTATUS 08:30 → N.2W 11:18
PROVIDERS: ADMIT Surgery; ATTEND Surgery